=== PATIENT | female | born 1950 | race Caucasian/White ===

== ENCOUNTER 2017-02-13 21:23 | Emergency (ER) | payer OTHER ==
[2017-02-13] MEDS ORDERED: IOPAMIDOL 370 (76%) 100 ML VIAL IV ONE (21:24)
[2017-02-13] MEDS ORDERED: SODIUM CHLORIDE 0.9% 1,000 ML ONE (22:28)
[2017-02-13] MEDS ORDERED: ALBUTEROL/IPRATROPIUM 2.5/0.5 MG 3 ML/EACH DOSE ONE (22:35)
[2017-02-13 23:09] LABS: ABSOLUTE NEUTROPHIL COUNT 3.9 K/mm3 (1.8-7.7); BASO % 0.2 % (0.2-1.0); EOS % 0.5 % (0.9-2.9); HEMATOCRIT 37.8 % (37.0-47.0); HEMOGLOBIN 12.9 gm/l (12.0-16.0); IMM NEUT% 0.5 % (0-1); LYMPH # 1.7 (1.0-4.8); LYMPH % 28.1 % (15-45); MEAN CELL VOLUME 87.7 fl (81.0-99.0); MEAN CORPUSCULAR HEMOGLOBIN 29.9 pg (27.0-31.0); MEAN CORPUSCULAR HGB CONC 34.1 g/dl (33.0-37.0); MEAN PLATELET VOLUME 10.5 fl (7.4-10.4); MONO # 0.4 (0.0-0.8); MONO % 7.2 % (4-12); NEUT % 63.5 % (43-75); PLATELET COUNT 203 K/mm3 (130-400)
[2017-02-13 23:24] LABS: SPECIFIC GRAVITY 1.025 (1.001-1.030); URINE BILIRUBIN NEGATIVE (NEGATIVE); URINE BLOOD NEGATIVE (NEGATIVE); URINE GLUCOSE (UA) NEGATIVE (NEGATIVE); URINE LEUKOCYTE ESTERASE NEGATIVE (NEGATIVE); URINE NITRITE NEGATIVE (NEGATIVE); URINE PROTEIN NEGATIVE (NEGATIVE); URINE UROBILINOGEN NORMAL (0-1 mg/dl)
[2017-02-13 23:24] LABS: ALB/GLOB RATIO 1.5 (>1.0); ALBUMIN 3.9 gm/dL (3.5-5.7); CALCIUM 9.7 mg/dL (8.6-10.3)
[2017-02-13 23:31] LABS: URINE APPEARANCE CLEAR; URINE COLOR DARK YELLOW
--- NOTE | 2017-02-14 08:24 | RAD ---
CHEST 2 VIEWS HISTORY: Syncope and cough Frontal and lateral chest radiographs dated 02/13/2017. COMPARISON: None. FINDINGS: FOCAL AIRSPACE OPACITY: No gross airspace consolidation. PLEURAL EFFUSION: None. CARDIOMEDIASTINAL SILHOUETTE: Nonenlarged. PNEUMOTHORAX: None identified. OSSEOUS STRUCTURES: Early thoracic disc degeneration with minor osteophyte formation. POSTPROCEDURAL CHANGE: Surgical clips overlie the left mammary soft tissues and axilla. IMPRESSION: No acute cardiopulmonary process noted.
--- NOTE | 2017-02-14 08:43 | CT ---
CHEST CTA HISTORY: Shortness breath, elevated d-dimer. TECHNIQUE: Following the administration of 80 mL Isovue-370 intravenous contrast, contiguous axial images were acquired from the thoracic inlet to the diaphragmatic hiatus for CT pulmonary angiography. Three-dimensional imaging was not performed. FINDINGS: PULMONARY ARTERIAL TREE: Technically adequate enhancement: No dominant filling defects. THORACIC AORTA: Normal caliber. No evidence of dissection. LUNGS: No gross airspace abnormality. No pleural effusion. EMIR AND MEDIASTINUM: No abnormally enlarged lymph nodes. AXILLAE: Left-sided surgical clips additional surgical clips at the left mammary soft tissues. UPPER ABDOMEN:No gross mass effect. OSSEOUS STRUCTURES: Minor thoracic disc degeneration. IMPRESSION: 1. No CTA evidence of proximal order pulmonary embolus. 2. No gross airspace disease or acute aortic pathology identified. 3. Postsurgical change, correlate for prior left lumpectomy and axillary dissection. Preliminary report relayed to the Emergency Medicine medical service by Dr. Ayala on 02/14/2017 at 0042 hours.
== END 2017-02-14 02:09 | disposition home or self-care (01) ==
LOC: ED 21:23
DX: R55 Syncope and collapse (principal); E86.0 Dehydration; J98.01 Acute bronchospasm
CPT/HCPCS: 85379; 85025; 80053; 81003; 84484; 71020; 71275; 94640; 94664; 99284 ×2; 93005; J7030; Q9967